=== PATIENT | female | born 1960 | race Caucasian/White ===

== ENCOUNTER 2024-07-09 08:59 | Outpatient (CLI) | payer MEDICARE, OTHER ==
[2024-07-09 09:40] LABS: ALBUMIN 3.3 G/DL (3.4-5.0); ANION GAP 6 (8-16); BLOOD UREA NITROGEN 25 MG/DL (7-18); BUN/CREATININE RATIO 22.5 (10.0-20.0); CALCIUM 9.1 MG/DL (8.5-10.1); CHLORIDE 106 MMOL/L (99-107); CREATININE 1.11 MG/DL (0.40-0.90); GLUCOSE 109 MG/DL (70-104); POTASSIUM 4.5 MMOL/L (3.5-5.1); SODIUM 141 MMOL/L (135-145); TOTAL CARBON DIOXIDE 29.5 MMOL/L (24-32); eGFR 49 ML/MIN
[2024-07-09] MEDS ORDERED: iohexol 350MG/ML 100ml bottle IV ONE (09:44)
== END 2024-07-09 23:59 | disposition home or self-care (01) ==
LOC: RAD 08:59
PROVIDERS: ATTEND Internal Medicine Interventional Cardiology
DX: I51.7 Cardiomegaly (principal); I27.20 Pulmonary hypertension, unspecified; F17.211 Nicotine dependence, cigarettes, in remission
CPT/HCPCS: 36415; 71275; 80048; Q9967

== ENCOUNTER 2024-11-10 10:17 | Day surgery (SDC) | payer MEDICARE, OTHER ==
[2024-11-06 11:21] LABS: BASOPHILS % (AUTO) 0.7 % (0-1); EOSINOPHILS # (AUTO) 0.2 X10'3 (0-0.9); EOSINOPHILS % (AUTO) 3.6 % (0-6); HEMATOCRIT 38.2 % (35.0-45.0); HEMOGLOBIN 12.5 g/dl (12.0-16.0); LYMPHOCYTES # (AUTO) 2.1 X10'3 (1.1-4.8); LYMPHOCYTES % (AUTO) 37.2 % (21-51); MEAN CORPUSCULAR HEMOGLOBIN 28.4 PG (27.0-31.0); MEAN CORPUSCULAR HGB CONC 32.7 g/dL (33.0-36.5); MEAN CORPUSCULAR VOLUME 86.7 FL (78-98); MEAN PLATELET VOLUME 8.3 FL (7.4-10.4); MONOCYTES # (AUTO) 0.4 X10'3 (0-0.9); MONOCYTES % (AUTO) 6.6 % (2-12); NEUTROPHILS # (AUTO) 2.9 X10'3 (1.8-7.7); NEUTROPHILS % (AUTO) 51.9 % (42-75); PLATELET COUNT 210 X10'3 (140-440); RED CELL DISTRIBUTION WIDTH 17.7 % (11.5-14.5); WHITE BLOOD COUNT 5.7 X10'3 (4.5-11.0)
[2024-11-06 11:34] LABS: APTT 25 SECONDS (22-32); PROTHROMBIN TIME 10.4 SECONDS (9.0-12.0)
[2024-11-06 11:43] LABS: ALBUMIN 3.2 G/DL (3.4-5.0); ANION GAP 5 (8-16); BLOOD UREA NITROGEN 30 MG/DL (7-18); BUN/CREATININE RATIO 33.7 (10.0-20.0); CALCIUM 9.1 MG/DL (8.5-10.1); CHLORIDE 105 MMOL/L (99-107); CHOL/HDL RATIO 5.7 (0.00-4.99); CHOLESTEROL 272 MG/DL (0-200); CREATININE 0.89 MG/DL (0.40-0.90); GLUCOSE 110 MG/DL (70-104); HDL CHOLESTEROL 48 MG/DL (35-60); LDL CHOLESTEROL 174 MG/DL (50-100); POTASSIUM 4.4 MMOL/L (3.5-5.1); SODIUM 142 MMOL/L (135-145); TOTAL CARBON DIOXIDE 31.6 MMOL/L (24-32); TRIGLYCERIDES 178 MG/DL (20-135); eGFR 64 ML/MIN
[2024-11-10] VITALS (9 sets, daily range): BP systolic 139–168; BP diastolic 73–95; PULSE 68–74; RESP 16; TEMP 98.2; O2SAT 94–98
[~2024-11-10] VITALS: Ht 160 cm; Wt 153.8 kg
[2024-11-10] MEDS ORDERED: MULT-1085 PO (11:08)
[2024-11-10] MEDS ORDERED: CRAN250C2 PO (11:09)
[2024-11-10] MEDS ORDERED: CELE-193 PO (11:09)
[2024-11-10] MEDS ORDERED: FURO-150 PO (11:11)
[2024-11-10] MEDS ORDERED: OXYC-145 PO (11:11)
[2024-11-10] MEDS ORDERED: verapamil 2.5 mg/ml inj IV ONE (12:05)
[2024-11-10] MEDS ORDERED: LIDOcaine 1% (10mg/ml) 2ml vial ONE ×2 (12:05→13:53)
[2024-11-10] MEDS ORDERED: iohexol 350MG/ML 100ml bottle IV ONE (12:06)
[2024-11-10] MEDS ORDERED: heparin 1,000 UNITS/NS 500ml 500 ML ONE (12:06)
[2024-11-10] MEDS ORDERED: heparin 1,000unit/ml 10ml vial 0 ML ONE (12:06)
[2024-11-10] MEDS ORDERED: midazolam 1 mg/ML 2ml injection ONE (12:06)
[2024-11-10] MEDS ORDERED: fentaNYL/PF 50MCG/1 ML 2ML syringe ONE (12:06)
[2024-11-10] MEDS ORDERED: nitroGLYCERIN 500mcg/5mL D5W 0 ML IV ONE (12:07)
[2024-11-10] MEDS: LORazepam 0.5 MG tablet PO PRN (12:49)
[2024-11-10] MEDS: diphenhydrAMINE 25mg capsule PO PRN (12:49)
[2024-11-10] MEDS: normal saline 1,000 ML IV SCH (12:50)
[2024-11-10] MEDS ORDERED: LIDOcaine 1% 30ml preserv. free vial ONE (14:00)
[2024-11-10] MEDS ORDERED: HYDROmorphone 1 mg/ml syringe ONE (14:27)
[2024-11-10 14:42] LABS: ISTAT HGB MIX 12.6 g/dl (12.0-16.0); ISTAT Hct MIX 37 %PCV (35-45); ISTAT O2 SATURATION MIX VENOUS 68 % (60-80); ISTAT SOURCE VEN
[2024-11-10] MEDS ORDERED: HYDROcodone/acetaminophen 5mg/325mg tablet PO PRN (15:15)
[2024-11-10] MEDS: HYDROcodone/acetaminophen 10/325mg tab PO PRN (15:27)
== END 2024-11-10 16:55 | disposition home or self-care (01) ==
LOC: SSTAY O 10:17
PROVIDERS: ATTEND Internal Medicine Interventional Cardiology
DX: I27.20 Pulmonary hypertension, unspecified (principal); I10 Essential (primary) hypertension; E66.9 Obesity, unspecified; G47.33 Obstructive sleep apnea (adult) (pediatric); C50.911 Malignant neoplasm of unspecified site of right female breast; Z79.01 Long term (current) use of anticoagulants; Z79.899 Other long term (current) drug therapy
CPT/HCPCS: 36415; 80048; 80061; 82803; 85014; 85025; 85610; 85730; 93005; 93451; A4615; A6258; C1751; C1760; C1769; C1894; J1171; J1644; J2003; J2250; J3010; J7030; Q0163; Z7610; J3490; Q9967